=== PATIENT | male | born 1960 | race Hispanic/Latino ===

== ENCOUNTER 2018-02-23 02:06 | Emergency (ER) | payer MEDICARE ==
[2018-02-23] MEDS ORDERED: NACL 0.9% 1000 ML 1,000 ML IV ONE (03:37)
[2018-02-23 04:40] LABS: Basophils # (Auto) 0.1 K/mm3 (0.0-0.1); Basophils % (Auto) 0.6 % (0.0-1.8); Eosinophils # (Auto) 0.7 K/mm3 (0.0-0.4); Eosinophils % (Auto) 6.4 % (0.0-4.3); Hematocrit 38.1 % (35.5-45.6); Hemoglobin 12.6 gm/dl (11.8-15.2); Lymphocytes % (Auto) 9.3 % (13.4-35.0); Mean Corpuscular HGB Conc 33 % (32-34); Mean Corpuscular Hemoglobin 31 pg (28-32); Mean Corpuscular Volume 94 fl (84-94); Monocytes # (Auto) 0.9 K/mm3 (0.0-0.8); Monocytes % (Auto) 8.2 % (0.0-7.3); Platelet Count 262 K/mm3 (140-440); Red Blood Count 4.05 M/mm3 (3.65-5.03)
[2018-02-23 05:08] LABS: Albumin 3.8 g/dL (3.9-5); Calcium 9.8 mg/dL (8.4-10.2)
--- NOTE | 2018-02-23 11:10 | Emergency Department Report ---
ED Abdominal Pain HPI - General Chief Complaint: Abdominal Pain Stated Complaint: ABD PAIN Time Seen by Provider: 02/23/18 10:16 Source: patient, EMS Mode of arrival: Stretcher Limitations: No Limitations - History of Present Illness Initial Comments: 58-year-old male presents to ER with complaints of nausea, vomiting, diarrhea. Onset 1 week ago. Pt thought symptoms possibly due to meals received from [employer]. Patient states then began developing crampy abdominal pain 2 days ago. Patient denies fever. Pt has a history of end-stage renal disease. Usual dialysis schedule Saturday. Patient states he missed dialysis yesterday due to diarrhea and feeling weak. So, patient last dialyzed 3 days ago. Pt denies history of prior abdominal surgery Renal: Dr Ashley PCP: Dr Chantel Benites -: week(s) (1) Location: diffuse Radiation: none Migration to: no migration Severity: moderate Severity scale (0 -10): 7 Quality: cramping Consistency: intermittent Improves With: nothing Worsens With: nothing Context: possible food poisoning Associated Symptoms: nausea, vomiting, diarrhea. denies: fever, chills, constipation - Related Data Home Medications Medication Instructions Recorded Confirmed Last Taken ALBUTEROL Inhaler (OR & NICU) 2 puff IH QID PRN 06/09/14 07/27/14 02/08/14 [ProAir HFA Inhaler] Allopurinol [Zyloprim] 100 mg PO QDAY 06/09/14 07/27/14 07/23/14 Carvedilol [Coreg] 6.25 mg PO BID 06/09/14 07/27/14 07/27/14 Cetirizine HCl 5 mg PO PRN PRN 06/09/14 07/27/14 07/25/14 Cinacalcet HCl [Sensipar] 30 mg PO DAILY 06/09/14 07/27/14 07/26/14 Fluticasone [Flonase] 2 spray NS QDAY 06/09/14 07/27/14 07/26/14 Losartan [Cozaar] 50 mg PO HS 06/09/14 07/27/14 07/26/14 Mometasone/Formoterol [Dulera 200 2 puff IH BID 06/09/14 07/27/14 07/26/14 Mcg/5 Mcg Inhaler] Omeprazole [PriLOSEC] 40 mg PO DAILY 06/09/14 07/27/14 07/26/14 Sevelamer Carbonate [Renvela] 1,600 mg PO TIDWM 06/09/14 07/27/14 07/24/14 Temazepam [Restoril] 15 mg PO QHS PRN 06/09/14 07/27/14 03/15/14 Torsemide [Demadex] 20 mg PO QDAY 06/09/14 07/27/14 07/25/14 Benzonatate [Tessalon Perles] 100 mg PO PRN PRN 07/27/14 07/27/14 07/26/14 Previous Rx's Medication Instructions Recorded Last Taken Type oxyCODONE /ACETAMINOPHEN [Percocet 1 tab PO Q4H PRN #20 tablet 06/16/14 Rx 5/325 mg] Acetaminophen/Codeine 1 tab PO Q6H PRN #30 tab 07/27/14 Unknown Rx [Acetaminophen-Codeine #3 TAB] Ciprofloxacin HCl [Cipro] 500 mg PO Q12H #20 tab 07/27/14 Unknown Rx Docusate Sodium [Colace] 100 mg PO BID #60 capsule 07/27/14 Unknown Rx Dicyclomine [Bentyl] 20 mg PO QID PRN #20 tablet 02/23/18 Unknown Rx Loperamide HCl [Imodium A-D] 2 mg PO DAILY PRN #10 tablet 02/23/18 Unknown Rx Ondansetron [Zofran Odt] 4 mg PO Q8HR PRN #20 tab.rapdis 02/23/18 Unknown Rx Allergies Allergy/AdvReac Type Severity Reaction Status Date / Time No Known Allergies Allergy Verified 06/09/14 23:33 ED Review of Systems ROS: Stated complaint: ABD PAIN Other details as noted in HPI Comment: All other systems reviewed and negative Constitutional: denies: chills, fever Respiratory: denies: shortness of breath Cardiovascular: denies: chest pain Gastrointestinal: abdominal pain, nausea, vomiting, diarrhea ED Past Medical Hx - Past Medical History Hx Hypertension: Yes Hx Congestive Heart Failure: No Hx Diabetes: Yes Hx GERD: Yes Hx Renal Disease: Yes (Tues, Thurs, Sat) Hx Arthritis: Yes Hx Seizures: No Hx Asthma: Yes (Last used inhaler 02/22/18) Hx COPD: Yes Additional medical history: Gout - Surgical History Additional Surgical History: fistula L arm. 2015 hernia - Social History Smoking Status: Never Smoker Substance Use Type: None - Medications Home Medications: Home Medications Medication Instructions Recorded Confirmed Last Taken Type ALBUTEROL Inhaler (OR & NICU) 2 puff IH QID PRN 06/09/14 07/27/14 02/08/14 History [ProAir HFA Inhaler] Allopurinol [Zyloprim] 100 mg PO QDAY 06/09/14 07/27/14 07/23/14 History Carvedilol [Coreg] 6.25 mg PO BID 06/09/14 07/27/14 07/27/14 History Cetirizine HCl 5 mg PO PRN PRN 06/09/14 07/27/14 07/25/14 History Cinacalcet HCl [Sensipar] 30 mg PO DAILY 06/09/14 07/27/14 07/26/14 History Fluticasone [Flonase] 2 spray NS QDAY 06/09/14 07/27/14 07/26/14 History Losartan [Cozaar] 50 mg PO HS 06/09/14 07/27/14 07/26/14 History Mometasone/Formoterol [Dulera 200 2 puff IH BID 06/09/14 07/27/14 07/26/14 History Mcg/5 Mcg Inhaler] Omeprazole [PriLOSEC] 40 mg PO DAILY 06/09/14 07/27/14 07/26/14 History Sevelamer Carbonate [Renvela] 1,600 mg PO TIDWM 06/09/14 07/27/14 07/24/14 History Temazepam [Restoril] 15 mg PO QHS PRN 06/09/14 07/27/14 03/15/14 History Torsemide [Demadex] 20 mg PO QDAY 06/09/14 07/27/14 07/25/14 History oxyCODONE /ACETAMINOPHEN [Percocet 1 tab PO Q4H PRN #20 tablet 06/16/1407/26/14 Rx 5/325 mg] Acetaminophen/Codeine 1 tab PO Q6H PRN #30 tab 07/27/14 Unknown Rx [Acetaminophen-Codeine #3 TAB] Benzonatate [Tessalon Perles] 100 mg PO PRN PRN 07/27/14 07/27/14 07/26/14 History Ciprofloxacin HCl [Cipro] 500 mg PO Q12H #20 tab 07/27/14 Unknown Rx Docusate Sodium [Colace] 100 mg PO BID #60 capsule 07/27/14 Unknown Rx Dicyclomine [Bentyl] 20 mg PO QID PRN #20 tablet 02/23/18 Unknown Rx Loperamide HCl [Imodium A-D] 2 mg PO DAILY PRN #10 tablet 02/23/18 Unknown Rx Ondansetron [Zofran Odt] 4 mg PO Q8HR PRN #20 tab.rapdis 02/23/18 Unknown Rx ED Physical Exam - General Limitations: No Limitations General appearance: alert, in no apparent distress - Head Head exam: Present: atraumatic, normocephalic - Neck Neck exam: Present: normal inspection - Respiratory Respiratory exam: Present: normal lung sounds bilaterally. Absent: respiratory distress - Cardiovascular Cardiovascular Exam: Present: regular rate, normal rhythm, other (dialysis fistula present and left upper extremity, palpable thrill present) - GI/Abdominal GI/Abdominal exam: Present: soft, hernia (bilateral imguinal hernias present, reducible). Absent: distended, tenderness - Extremities Exam Extremities exam: Present: normal inspection - Neurological Exam Neurological exam: Present: alert, oriented X3 - Psychiatric Psychiatric exam: Present: normal affect, normal mood - Skin Skin exam: Present: warm, dry, intact, normal color ED Course Vital Signs 02/23/18 02/23/18 02/23/18 03:22 09:45 10:02 Temperature 98.8 F 99.1 F Pulse Rate 79 74 Respiratory 16 16 16 Rate Blood Pressure 170/86 Blood Pressure 177/87 [Right] O2 Sat by Pulse 97 98 98 Oximetry 02/23/18 13:00 Temperature Pulse Rate 77 Respiratory 18 Rate Blood Pressure Blood Pressure 166/88 [Right] O2 Sat by Pulse 96 Oximetry - Reevaluation(s) Reevaluation #1: 02/23/18 13:34 Patient remains comfortable at this time. Denies abdominal pain ED Medical Decision Making - Lab Data Result diagrams: 02/23/18 04:23 02/23/18 04:23 - Radiology Data Radiology results: report reviewed, image reviewed - Medical Decision Making 58-year-old male with abdominal pain nausea vomiting diarrhea 1 week. Vital signs stable. No fever, tachycardia, or hypotension present. Labs unremarkable , including potassium. Elevated creatinine as expected due to ESRD. CT scan negative for any acute abnormalities. Patient comfortable at this time. No emesis or loose stools here in ED. Will discharge with prescriptions for antinausea, antidiarrheal, and pain meds. Advised to follow up with primary care physician as needed. Return precautions given. - Differential Diagnosis gastroenteritis, hyperkalemia, pancreatitis Critical care attestation.: If time is entered above; I have spent that time in minutes in the direct care of this critically ill patient, excluding procedure time. ED Disposition Clinical Impression: Gastroenteritis Disposition: - TO HOME OR SELFCARE Is pt being admited?: No Condition: Stable Instructions: Gastroenteritis (ED) Prescriptions: Dicyclomine [Bentyl] 20 mg PO QID PRN #20 tablet PRN Reason: abdominal pain Loperamide HCl [Imodium A-D] 2 mg PO DAILY PRN #10 tablet PRN Reason: Diarrhea Ondansetron [Zofran Odt] 4 mg PO Q8HR PRN #20 tab.rapdis PRN Reason: Vomiting Referrals: PRIMARY CARE, [Primary Care Provider] - 3-5 Days Time of Disposition: 13:44
--- NOTE | 2018-02-23 12:26 | Cat Scan Report ---
FINAL REPORT EXAM: CT ABDOMEN PELVIS WO CON HISTORY: abd pain TECHNIQUE: Noncontrast CT of the abdomen and pelvis performed. No IV or gastrointestinal contrast was administered. Axial images and coronal and sagittal reformatted images were obtained. PRIORS: None. FINDINGS: The visualized aspects of the lung bases are clear. There are coronary artery atherosclerotic calcifications. There is cholelithiasis. Kidneys are markedly atrophic. There are innumerable renal cysts bilaterally. 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 There are renal calcifications which are likely calcifications in cyst deluna. Within the limitations of a non-enhanced study, the visualized liver, spleen, pancreas, adrenal glands and kidneys demonstrate no significant abnormalities. The appendix is normal. There are no abnormal fluid collections seen. There is no free intraperitoneal air. There is diffuse thickening of the bladder wall. There is mild prostate enlargement. There is a moderate-sized right inguinal hernia. This is a direct inguinal hernia. It contains sigmoid colon. It does not cause obstruction. There is a very small left inguinal hernia which contains only fat. IMPRESSION: Moderate size right inguinal hernia containing sigmoid colon. It does not cause bowel obstruction and is not associated with inflammatory change. There is a minimal left inguinal hernia which contains only fat. Atrophic kidneys with the numerable cysts. 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 Renal calcifications are likely cyst wall calcifications. Cholelithiasis
[2018-02-23] MEDS ORDERED: ZOFRAN PO ONE (13:34)
[2018-02-23] MEDS ORDERED: IMODIUM A-D PO ONE (13:35)
[2018-02-23 14:39] VITALS: BP 166/88
[2018-02-23] MEDS ORDERED: IMODIUM PO ONE (15:00)
== END 2018-02-23 14:35 | disposition home or self-care (01) ==
LOC: ED 02:06
DX: K52.9 Noninfective gastroenteritis and colitis, unspecified (principal); I10 Essential (primary) hypertension; E11.9 Type 2 diabetes mellitus without complications; K21.9 Gastro-esophageal reflux disease without esophagitis; M19.90 Unspecified osteoarthritis, unspecified site; J44.9 Chronic obstructive pulmonary disease, unspecified
CPT/HCPCS: 36415; 74176; 80053; 83690; 85025; Q0162